=== PATIENT | male | born 1985 | race Caucasian/White ===

== ENCOUNTER 2024-02-28 21:02 | Emergency (ER) | payer BC ==
[2024-02-28] MEDS ORDERED: fentaNYL 50 mcg/mL 1 mL Vial ONE (21:38)
[2024-02-28] MEDS ORDERED: Ketorolac Tromethamine 30 MG (1 mL) VIAL ONE (21:38)
== END 2024-02-28 22:21 | disposition home or self-care (01) ==
LOC: ERS 21:02
DX: S93.602A Unspecified sprain of left foot, initial encounter (principal); X50.1XXA Overexertion from prolonged static or awkward postures, initial encounter; Y93.72 Activity, wrestling
CPT/HCPCS: 96372; J1885; J3010